=== PATIENT | male | born 1955 | race Caucasian/White ===

== ENCOUNTER → 2017-04-15 | Outpatient (CLI) | payer OTHER ==
[~2017-04-15] MED LIST: ALLOPURINOL 10100 M2 PO; EXCEDRIN CAPLE1 EACH PO; ITRACONAZOLE 1100 M1 PO; LISINOPRIL10 MG PO; MUCINEX TA600 MG/TA2 PO; PRILOSEC 20 MG20 MG PO; TYLENOL325 MG PO
== END ==
LOC: CAT 09:36
DX: R06.02 Shortness of breath (principal); R91.1 Solitary pulmonary nodule

== ENCOUNTER → 2017-05-02 | Outpatient (CLI) | payer OTHER | LOC: PET 07:39 | DX: R91.8 Other nonspecific abnormal finding of lung field (principal) ==

== ENCOUNTER 2017-06-17 05:17 | Day surgery (SDC) | payer OTHER ==
[2017-06-13 10:58] LABS: URINE BILIRUBIN NEGATIVE (Negative); URINE BLOOD NEGATIVE (Negative); URINE COLOR YELLOW; URINE GLUCOSE-RANDOM* NEGATIVE (Negative); URINE KETONES NEGATIVE (Negative); URINE LEUKOCYTES-REFLEX NEGATIVE (Negative); URINE PROTEIN (DIPSTICK) NEGATIVE (Negative); URINE UROBILINOGEN 0.2 E.U./dl (0.2-1.0)
[2017-06-13 11:03] LABS: HEMATOCRIT 39.1 % (42.0-52.0); HEMOGLOBIN 13.2 gm/dL (14.0-18.0); MCH 29.3 pg (26.0-34.0); MCHC 33.7 g/dL (28.0-37.0); MCV 86.9 fL (80.0-100.0); RBC 4.5 mil/uL (4.50-6.00)
[2017-06-13 11:12] LABS: APTT 29.9 Seconds (24.5-32.8); PROTIME 10.3 Seconds (9.3-11.4)
[2017-06-13 11:13] LABS: ALBUMIN 3.7 g/dL (3.4-5.0); POTASSIUM 4.1 mmol/L (3.5-5.1); TOTAL BILIRUBIN 0.4 mg/dL (<0.1-1.0); TOTAL PROTEIN 6.6 g/dL (6.4-8.2)
[~2017-06-17] VITALS: Ht 180.3 cm; Wt 88.0 kg
--- NOTE | ~2017-06-17 | S ---
[facility] [address] [place] [address] SURGICAL PATH RPT PROCEDURE Name: JOHN ROSAS Room #: [facility]P [facility]..#: [id number] Admission: 06/17/17 Date of : 55 Discharge: 06/17/17 Report #: [id number] Path Case #: [id number] PATHOLOGY REPORT COLLECTION DATE: 06/17/2017 RECEIVED DATE: 06/17/2017 SUBMITTING PHYS: Dr. Paulino Hanna OTHER PHYS: Dr. Ramo Sharma ADDENDUM REPORT (Order Date: 06/23/2017 14:10) ADDENDUM COMMENT: Properly controlled special stains are performed. Block A1 AFB - Negative for acid-fast organisms GMS - Negative for convincing fungal organisms The final diagnosis remains unchanged. (CLW:parrish; 06/23/2017) Professional services performed by [facility] at [facility] [address] [place] [address] Technical services performed by [facility] at [address] [place] [address], [address] [place] [address]. ELECTRONICALLY SIGNED BY: Sanjuana Dubois M.D. DATE/TIME:06/23/2017 14:33 SPECIMEN(S) RECEIVED: A.Right paratracheal lymph node * * * * * * * * * * * * FINAL DIAGNOSIS: "Right paratracheal lymph node," incisional biopsy: - Fibroadipose connective tissue and lymphoid tissue / lymph node with scattered necrotizing and non-necrotizing granulomas. (see comment) COMMENT: Flow cytometric immunophenotypic analysis was performed at [email or web address]. The diagnosis is "no immunophenotypic evidence for non-Hodgkin lymphoma detected." There are 84.7%. Of the lymphocytes, there are 73% T cells with a CD4/CD8 ratio of 2.6 and no aberrant T cell antigen expression and 18% polyclonal B cells (kappa:lambda ratio of 1.0). There is no immunophenotypic evidence of B cell or T cell non-Hodgkin lymphoma detected in this specimen. Please see separate flow cytometry report from [facility] [address] SURGICAL PATH RPT PROCEDURE Name: JOHN ROSAS Room #: [facility]..#: [id number] Admission: 06/17/17 Date of : 55 Discharge: 06/17/17 Report #: [id number] Path Case #: [id number] [facility] ([id number]). Due to the necrotizing and non-necrotizing granulomas, special stains for microorganisms are pending and will be reported as an addendum. Correlation with clinical history, radiographic findings, and microbiology specimens is recommended. (CLW:; 06/20/2017) PATHOLOGIST: Sanjuana Dubois M.D. REPORT ELECTRONICALLY SIGNED BY: Sanjuana Dubois M.D. DATE/TIME: 06/20/2017 15:56 * * * * * * * * * * * * GROSS PATHOLOGY: The specimen is received in formalin labeled "John Rosas, right paratracheal lymph node". Received are multiple segments of pale jeffries to black lobulated tissue measuring 2.5 x 1.5 x 0.3 cm in aggregate dimensions. The specimen is submitted entirely in cassette A1. A portion of the specimen is placed in RPMI solution and forwarded on for flow cytometry studies directly from [facility]. ([facility]; 06/18/2017) CLINICAL HISTORY: Mediastinal adenopathy INITIAL CPT CODE(S): A; 39633, 71745, 46088 Professional services performed by [facility] at [facility], [address] [place] [address]. Technical services performed by [facility] at [address] [place] [address], [address], [place] [address]. [facility] [address] [place] [address] PHONE: [phone] DIRECTOR: Nikos Hallman M.D. * * * END OF REPORT * * *
--- NOTE | ~2017-06-17 | EKG ---
[address] [address] ELECTROCARDIOGRAM REPORT Name: AUBREE GUDINODONATO OHLIE Room #: PRE [facility].#: [id number] Admission: Attend Phys: Paulino Hanna MD Discharge: Date of : 55 Report #: [id number] THIS REPORT FOR: //name// [facility] Test Date: 2017-06-13 Test Time: 10:23:47 Pat Name: MARCIA GUDINO Department: Room: Gender: [employer] Operator: Annamarie HINES : 1955 Requested By: Paulino Hanna Order Number: [id number] MD: Ivan Chong Measurements Intervals [place] Rate: 78 P: 57 TX: 172 QRS: 66 QRSD: 98 T: 6 QT: 385 QTc: 439 Interpretive Statements Sinus rhythm Minimal ST elevation, anterior leads No previous ECG available for comparison Electronically Signed On 06-13-2017 12:42:39 [employer]ILDING [employer] by Ivan Chong [email or web address] <ELECTRONICALLY SIGNED> By: Ivan Chong MD 06/13/17 1242 1023 1023 Ivan Chong MD /SYED
--- NOTE | ~2017-06-17 | O ---
[facility] [address] [address] OPERATIVE REPORT Name: MARCIA GUDINO Room #: 150-4 [facility] M.R.#: [id number] Admission: 06/17/17 Attend Phys: Paulino Hanna MD Discharge: Date of : 55 Report #: [id number] THIS REPORT FOR: //name// CC: Samantha Hanna DATE OF SERVICE: 06/17/2017 PREOPERATIVE DIAGNOSIS: Mediastinal adenopathy. FINAL DIAGNOSIS: Mediastinal adenopathy. OPERATIVE PROCEDURE PERFORMED: Mediastinoscopy. SURGEON: Paulino Hanna MD BOTTOM TURNING LATHE TENDER: None. ANESTHESIA: General. OPERATIVE INDICATIONS: The patient is a 62-year-old male who has a known history of histoplasmosis, which has been successfully treated. He has incurred a persistent lymph node in the right paratracheal location. This lymph node has not shown evidence of regression in size and in fact has enlarged slightly. The patient has persistent cough. There were concerns of possible neoplastic changes. Therefore, the patient was brought to the operating room now for mediastinoscopy or surgical biopsy. OPERATIVE SUMMARY: The patient was brought to the operating room, placed on the OR table in supine position. After anesthesia was induced via general endotracheal route the monitoring lines were positioned. The patient was prepped and draped in sterile fashion with chlorhexidine. A transverse incision was made in the midline low in the neck. Dissection was carried down through the subcutaneous tissues. We identified the strap muscles in the midline and incised the midline raphe. We dissected down to the pretracheal fascia, opened it and were able to dissect bluntly in the pretracheal space. I then introduced the mediastinoscope and identified a site lymphadenopathy in the right peritracheal space just inferior to the innominate artery. It was dissected from the surrounding tissue. It was very firm and hard. Multiple biopsies were taken. On multiple occasions purulent material was returned when biopsies were taken. Multiple specimens were removed and sent to pathology for surgical pathology as well as aerobic and anaerobic cultures and fungal cultures. The surgical site was irrigated and then once adequate hemostasis was achieved, we then closed in multiple layers with absorbable suture. The procedure was completed. The patient was taken to the postanesthesia care unit in [address] [address] OPERATIVE REPORT Name: MARCIA GUDINO Room #: [address] [place] [address]#: [id number] Admission: 06/17/17 Attend Phys: Paulino Hanna MD Discharge: Date of : 55 Report #: [id number] condition. The operative blood loss about 10 mL. There were no intraoperative complications noted. All sponge and needle counts were reported as correct. By: [id number] [id number] /nt
[~2017-06-17 05:17] MED LIST changes: +ACETAMINOPHEN-1 EAC1 PO; +BREO ELLIPTA 11 EACH INH; +LOSARTAN-HCTZ1 EAC2 PO; +STOOL SOFTENER100 M1 PO; +TRAZODONE HCL50 MG PO; +VENTOLIN HFA 1818 GM INH
[2017-06-17 11:51] VITALS: BP 131/96
[2017-06-17 16:10] VITALS: BP 131/96
== END 2017-06-17 16:25 | disposition home or self-care (01) ==
LOC: OR 05:17 → TBA 05:17 → OR 09:01
PROVIDERS: Thoracic Surgery (Cardiothoracic Vascular Surgery)
DX: I88.9 Nonspecific lymphadenitis, unspecified (principal); I10 Essential (primary) hypertension; K21.9 Gastro-esophageal reflux disease without esophagitis; M10.9 Gout, unspecified; Z90.49 Acquired absence of other specified parts of digestive tract; Z98.890 Other specified postprocedural states; Z79.899 Other long term (current) drug therapy
CPT/HCPCS: 50010; 50101; 50386; 50403; 51301; 56524; 56526; 56528; 62110; 62900; 70005